=== PATIENT | female | born 1950 | race Caucasian/White ===

== ENCOUNTER 2019-07-11 06:43 | Emergency (ER) | payer OTHER ==
[~2019-07-11] VITALS: Ht 152.4 cm; Wt 86.2 kg
[2019-07-11 06:50] VITALS: Ht 152.4 cm; Wt 86.2 kg
[2019-07-11 07:41] LABS: BASOPHIL % 0.2 % (0-2); PLATELET COUNT 224 x10^3mcL (130-400); RED CELL DISTRIBUTION WIDTH 13.2 % (11.5-14.5)
[2019-07-11 07:55] LABS: UA SPECIFIC GRAVITY 1.015 (1.005-1.035); microscopic required? YES; urine erythrocyte 2+ (NEGATIVE)
[2019-07-11 08:38] LABS: CALCIUM 8.7 mg/dL (8.5-10.1); CARBON DIOXIDE 27.7 mmol/L (21-32); CHLORIDE SERUM 102 mmol/L (98-107); CREATININE SERUM 0.8 mg/dL (0.6-1.0); GFR1 > 60 mL/min; GLUCOSE SERUM 119 mg/dL (74-106); SODIUM SERUM 137 mmol/L (136-145)
[2019-07-11 08:50] LABS: ALBUMIN 3.5 g/dL (3.4-5.0); ALKALINE PHOSPHATASE 82 U/L (46-116); ALT/SGPT 20 U/L (14-59); AST/SGOT 15 U/L (15-37); BILIRUBIN TOTAL 0.9 mg/dL (0.20-1.00); CHOLESTEROL 196 mg/dL (<200); LIPASE 116 IU/L (73-393); T4(THYROXINE) 9.3 ug/dL (4.7-13.3); TOTAL PROTEIN, SERUM 7.2 g/dL (6.4-8.2)
[2019-07-11 08:51] LABS: HDL CHOLESTEROL 63 mg/dL (40-60)
[2019-07-11 10:15] VITALS: BP 110/60
== END 2019-07-11 11:07 | disposition home or self-care (01) ==
LOC: ED 06:43
PROVIDERS: Emergency Medicine
DX: N39.0 Urinary tract infection, site not specified (principal); I10 Essential (primary) hypertension; E66.9 Obesity, unspecified; Z68.37 Body mass index [BMI] 37.0-37.9, adult; Z88.0 Allergy status to penicillin; Z90.49 Acquired absence of other specified parts of digestive tract; Z87.19 Personal history of other diseases of the digestive system
CPT/HCPCS: 82962; 87804; J1956; J7030; Q0092